=== PATIENT | female | born 1945 | race Caucasian/White ===

== ENCOUNTER 2016-04-13 06:40 | Day surgery (SDC) | payer MEDICARE ==
[~2016-04-13] VITALS: Ht 157.5 cm; Wt 98.4 kg
[~2016-04-13 06:40] MED LIST: ALEVE220 MG PO; AMITRIPTYLINE H50 MG PO; BAYER ASPIRIN325 MG PO; CYMBALTA60 MG PO; FUROSEMIDE20 MG PO; K-TAB10 MEQ PO; LEVOTHYROXINE125 MCG PO; NEXIUM40 MG PO; SODIUM BICARBO650 MG PO; TOPAMAX25 MG PO; VITAMIN B-121000 MCG PO; VITAMIN E400 UNI2 PO; ZOFRAN4 MG PO
[2016-04-13] MEDS ORDERED: ZOFRAN4 MG PO (07:46)
[2016-04-13 07:47] VITALS: BP 148/89; Ht 157.5 cm; Wt 98.4 kg
[2016-04-13 08:56] LABS: BASOPHILS 0.4 % (0.0-2.0); EOSINOPHILS 2.6 % (0-7); HEMATOCRIT 33.5 % (36.0-48.0); HEMOGLOBIN 9.7 g/dL (12-16); IMMATURE GRANULOCYTES 0.2 % (0-5); LYMPHOCYTES 29.2 % (15-50); MCH 26.5 pg (26.0-34.0); MCV 91.5 fL (80.0-100.0); MONOCYTES 6.9 % (2-11); NEUTROPHILS 60.7 % (40-80); RBC 3.66 10x6/uL (4.00-5.40); RDW 17.3 % (11.5-14.5); WBC 9.4 10x3/uL (4.8-10.8)
[2016-04-13 08:58] LABS: PLATELET COUNT 403 10x3/uL (130-400)
[2016-04-13 09:16] LABS: ANION GAP 14.6 mmol/L (8-16); CALCIUM 9.1 mg/dL (8.5-10.1); CARBON DIOXIDE 25.1 mmol/L (21.0-32.0); CREATININE - SERUM 2.2 mg/dL (0.6-1.3); POTASSIUM - SERUM 4.7 mmol/L (3.5-5.1)
[2016-04-13] MEDS ORDERED: PERCOCET 10/3251 TA1 PO (09:42)
--- NOTE | 2016-04-13 12:40 | NUR ---
DISCHARGE INSTRUCTIONS AND RX GIVEN, VOICED UNDERSTANDING. DISCHARGED HOME VIA WC.
--- NOTE | 2016-04-28 13:33 | OP ---
PATIENT NAME: LA OCAMPO MEDICAL RECORD: [id number] :45 LOCATION:D.OPS ADMISSION DATE: SURGEON: MARY VELA MD DATE OF OPERATION: 04/13/2016 PREOPERATIVE DIAGNOSIS: Endometrial adenocarcinoma. POSTOPERATIVE DIAGNOSIS: Endometrial adenocarcinoma. PROCEDURE: 1. Left subclavian vein PowerPort placement. 2. Fluoroscopic interpretation. SURGEON: Mary Vela MD. OPERATIVE PROCEDURE: The patient's left chest was prepped and draped in sterile fashion. A needle was used to cannulate the left subclavian vein. The guidewire was advanced with ease. Fluoro was used to note that the wire was in good position in the venous system. A skin incision was made on the left lateral chest and a subcutaneous pouch was made overlying the pectoral fascia. A catheter was tunneled between this subcutaneous pouch and the wire exit site. The catheter was then sutured to the pectoral fascia using interrupted 2-0 Prolenes times 2. The catheter was then cut with a beveled tip. The dilator trocar device was placed over the wire and the wire and dilator were removed. The catheter tip was advanced through the trocar with ease and the trocar was removed. The catheter flushed easily with heparinized saline. We then reapproximated the subcutaneous tissues with interrupted 3-0 Vicryls and the skin incision was closed with subcutaneous 5-0 Monocryl. COMPLICATIONS: None. CONDITION: Stable. ANESTHESIA: General endotracheal and local. BLOOD LOSS: Minimal. TRANSINT:[id number] Voice Confirmation ID: [id number] DOCUMENT ID: [id number] MARY VELA MD at 1333 CC: [id number] DICTATION DATE: 04/26/16 1651 CHERRY GROWER: 04/26/16 2315 [facility] 04/13/16 [place] [id number]
== END 2016-04-13 12:40 | disposition home or self-care (01) ==
LOC: D.OPS 06:40
PROVIDERS: Surgery
DX: C54.1 Malignant neoplasm of endometrium (principal)

== ENCOUNTER 2016-05-21 16:38 | Inpatient (IN) | payer MEDICARE ==
[~2016-05-21] VITALS: Ht 157.5 cm; Wt 98.0 kg
[~2016-05-21 16:38] MED LIST changes: +PERCOCET 10/3251 TA1 PO
[2016-05-21 18:10] LABS: BASOPHILS 1.5 % (0.0-2.0); EOSINOPHILS 0 % (0-7); HEMATOCRIT 39.8 % (36.0-48.0); HEMOGLOBIN 12.7 g/dL (12-16); IMMATURE GRANULOCYTES 1.2 % (0-5); LYMPHOCYTES 19.5 % (15-50); MCH 26.5 pg (26.0-34.0); MCHC 31.9 g/dL (31.0-37.0); MCV 83.1 fL (80.0-100.0); MEAN PLATELET VOLUME 9.4 fL (7.4-10.4); MONOCYTES 2.6 % (2-11); NEUTROPHILS 75.2 % (40-80); RBC 4.79 10x6/uL (4.00-5.40); RDW 16.4 % (11.5-14.5); WBC 6.6 10x3/uL (4.8-10.8)
[2016-05-21 18:11] LABS: PLATELET COUNT 287 10x3/uL (130-400)
[2016-05-21 18:33] LABS: ALBUMIN 2.8 g/dL (3.4-5.0); ANION GAP 15.5 mmol/L (8-16); BILIRUBIN - TOTAL 0.45 mg/dL (0.2-1.3); CALCIUM 8.1 mg/dL (8.5-10.1); CARBON DIOXIDE 20.5 mmol/L (21.0-32.0); CREATININE - SERUM 1.9 mg/dL (0.6-1.3); PROTEIN - SERUM 5.8 g/dL (6.4-8.2)
--- NOTE | 2016-05-21 22:16 | NUR ---
REC'D TO ROOM 2218 PER STRETCHER A 70 Y/O W/FE PER SERVICES DR. FLOWERS WITH DX HYPOTENSION/UTERINE CANCER ALLERGY=CODEINE. IV PATENT LEFT AC OF LR AT 125CC'S/HR. ASSESSMENT PER ADMIT PACKET. FAMILY MEMBER AT BEDSIDE.
[2016-05-21 22:33] VITALS: BP 104/66; BMI 39.6
--- NOTE | 2016-05-22 00:39 | NUR ---
EYES CLOSED RESPIRATIONS WITH EASE AND UNLABORED.
--- NOTE | 2016-05-22 02:26 | NUR ---
RESTING QUIETLY ESPIRATIONS WITH EASE AND UNLABORED SR UP X2 CALL LIGHT WITHIN REACH.
[2016-05-22 04:00] VITALS: BP 93/61
[2016-05-22 06:21] LABS: APPEARANCE CLOUDY (CLEAR); BACTERIA MANY /hpf (NONE SEEN); BILIRUBIN NEGATIVE (NEGATIVE); COLOR YELLOW (YELLOW); EPITHELIAL CELLS 0-5 /hpf (0-5); GLUCOSE NEGATIVE (NEGATIVE); KETONE SMALL mg/dL (NEGATIVE); LEUKOCYTE ESTERASE 1+ (NEGATIVE); NITRITE NEGATIVE (NEGATIVE); PROTEIN 2+ mg/dL (NEGATIVE); UROBILINOGEN NORMAL (NORMAL)
[2016-05-22 06:23] LABS: GRANULAR CAST OCC /lpf (NONE SEEN); MUCUS <1+ /lpf (NONE SEEN)
--- NOTE | 2016-05-22 07:00 | NUR ---
PT. WAS RECEIVED AT THE BEGINNING OF THIS SHIFT IN BED AWAKE AND ORIENTED X 3. FAMILY AT BEDSIDE. VITAL SIGNS WNL. LEFT AC WITH LR GOING AT 125ML'S/HR VIA PUMP. WILL BE MONITORING HER THROUGHOUT THIS SHIFT AND ASSISTING PRN WITH ADL'S. NO DISTRESS FOUND.
[2016-05-22 07:04] LABS: BASOPHILS 1.6 % (0.0-2.0); EOSINOPHILS 0 % (0-7); HEMATOCRIT 35.5 % (36.0-48.0); HEMOGLOBIN 11.4 g/dL (12-16); IMMATURE GRANULOCYTES 1.4 % (0-5); LYMPHOCYTES 19.5 % (15-50); MCH 26.2 pg (26.0-34.0); MCHC 32.1 g/dL (31.0-37.0); MCV 81.6 fL (80.0-100.0); MEAN PLATELET VOLUME 9.2 fL (7.4-10.4); MONOCYTES 3.5 % (2-11); PLATELET COUNT 258 10x3/uL (130-400); RBC 4.35 10x6/uL (4.00-5.40); RDW 16.5 % (11.5-14.5)
[2016-05-22 07:10] LABS: WBC 4.9 10x3/uL (4.8-10.8)
[2016-05-22 07:36] LABS: ALBUMIN 2.3 g/dL (3.4-5.0); ALKALINE PHOSPHATASE 60 U/L (46-116); ALT (SGPT) 17 U/L (10-68); BILIRUBIN - TOTAL 0.35 mg/dL (0.2-1.3); CALC OSMOLALITY 283 mosm/kg (275-300); CALCIUM 7.8 mg/dL (8.5-10.1); CARBON DIOXIDE 19.2 mmol/L (21.0-32.0); CHLORIDE - SERUM 107 mmol/L (98-107); CREATININE - SERUM 1.6 mg/dL (0.6-1.3); GLUCOSE 109 mg/dL (74-106); MAGNESIUM - SERUM 1.8 mg/dL (1.8-2.4); POTASSIUM - SERUM 3.2 mmol/L (3.5-5.1); PROTEIN - SERUM 4.9 g/dL (6.4-8.2); SODIUM 140 mmol/L (136-145); UREA NITROGEN 25 mg/dL (7-18); eGFR NON AFRICAN AMERICAN 34 mL/min (90-120)
[2016-05-22 07:39] LABS: TROPONIN-I < 0.017 ng/mL (0.000-0.060)
[2016-05-22 08:12] VITALS: BP 100/70; BP 102/65
[2016-05-22 12:04] VITALS: BP 97/65
[2016-05-22 12:32] VITALS: Ht 157.5 cm; Wt 98.0 kg
--- NOTE | 2016-05-22 15:56 | NUR ---
PT HAS CONTINUED TO HAVE SEVERAL LOOSE STOOLS THIS SHIFT. LOMOTIL PO WAS GIVEN AROUND 3PM. PT. IS RESTING IN BED WITH DOOR SHUT AND COLD RAG ON HER FOREHEAD. WILL CONTINUE TO OBSERVE PT. AND ASSIST PRN. CALL LIGHT IS IN REACH.
[2016-05-22 15:59] VITALS: BP 103/73
[2016-05-22 20:00] VITALS: BP 121/71
--- NOTE | 2016-05-22 20:00 | NUR ---
ASSESSMENT PER FLOWSHEET. IV IN LEFT AC INFILTRATED GREATLY IN REMOVE WITH TIP INTACT ATTEMPT TO ACCESS INFUSAPORT. NO BLOOD RETURN BUT FLUSHES WITH EASE CONNECTED IV FLUIDS WILL OBSERVE SITE IF SWELLING OCCURS WILL REMOVE RAJAN NEEDLE. K+ RIDER #1 INFUSING K+ WAS 3.2 THIS AM AT 0630 AND NOT TREATED. PT DOES HAVE ELECTROLYTE PROTOCAL. PT SISTER AT BEDSIDE.LR INFUSING AT 125CC'S/HR.
--- NOTE | 2016-05-22 20:15 | NUR ---
RE CHECKED IV SITE SOME SWELLING NOTED ABOVE PORT SITE ALSO PAINFUL TO TOUCH. IV STOPPED AND RAJAN NEEDLE PULLED. NOTIFIED ICU TO HELP TRY.
--- NOTE | 2016-05-22 20:45 | NUR ---
ICU NURSE HERE TO TRY AND ACCESS PORT SITE. SHE WAS UNSUCCESSFUL.
--- NOTE | 2016-05-22 21:00 | NUR ---
NOTIFIED WOUND CARE NURSE TERE GOMEZ TO HELP ACCESS PORT. ATTEMPTS X1 TRIED NO SUCCESS. PERIPHERAL IV STARTED RT HAND #22G ANGIOCATH X1 ATTEMPT PER ZAIDA GOMEZ. RESUMED IV FLUIDS AND CONTINUED K+ RIDERS.
--- NOTE | 2016-05-22 22:22 | NUR ---
2210 Attempted 1" Huberneedle insertion into left subclavian InfusaPort site using sterile procedure, prepped with Chloraprep from kit. Needle seemed to insert into port without difficulty however unable to inject saline or withdraw blood from site. Needle removed. Site covered with sterile guaze and secured with steristrip. Informed patient and family member MD will have to evaluate Infusaport before attempt to use. PIV started Rt hand by Tung Francois RN.
--- NOTE | 2016-05-22 22:32 | NUR ---
UP TO BR VOIDS AND HAD LARGE BROWN WATERY STOOL. LOMOTIL TAB ONE PO GIVEN FOR DIARRHEA.
--- NOTE | 2016-05-23 | NUR ---
EYES CLOSED RESPIRATIONS WITH EAS AND UNLABORED. CONTINUING WITH K+ RIDERS.
[2016-05-23 04:00] VITALS: BP 105/81
--- NOTE | 2016-05-23 04:00 | NUR ---
RESTING QUIETLY NO VOICED C/O SR UP X2 CALL LIGHT WITHIN REACH.
[2016-05-23 07:05] LABS: POTASSIUM - SERUM 3.7 mmol/L (3.5-5.1)
--- NOTE | 2016-05-23 07:15 | NUR ---
REPORT RECEIVED FROM PHOTOGRAPHIC TECHNICIAN NURSE. CALL LIGHT IN REACH.
[2016-05-23 08:21] LABS: ALBUMIN 2.4 g/dL (3.4-5.0); BILIRUBIN - TOTAL 0.2 mg/dL (0.2-1.3); CALCIUM 8.7 mg/dL (8.5-10.1); CREATININE - SERUM 1.6 mg/dL (0.6-1.3); PROTEIN - SERUM 5.7 g/dL (6.4-8.2)
[2016-05-23 08:25] LABS: ANION GAP 23.4 mmol/L (8-16); CARBON DIOXIDE 13.3 mmol/L (21.0-32.0)
[2016-05-23 08:41] VITALS: BP 91/67
--- NOTE | 2016-05-23 09:15 | NUR ---
ASSESSMENT COMPLETED. SPOKE WITH ABAD IN [facility] ABOUT GETTING SCD MACHINE SO THAT PATIENT CAN HAVE HER PLEX-PULSES. FAMILY IN ROOM. CALL LIGHT IN REACH. WILL CONTINUE WITH PLAN OF CARE.
--- NOTE | 2016-05-23 11:30 | NUR ---
AM MEDS ADMINISTERED. GETTING US AT THIS TIME.
--- NOTE | 2016-05-23 12:15 | NUR ---
PATIENT IS AWAKE AND ALERT. PATIENT VERBALIZED NAUSEA, REQUESTED ZOFRAN. ADMINISTERED ZOFRAN IV. FAMILY IN ROOM. BED IN LOWEST POSITION, CALL LIGHT IN REACH. BED RAILS UP X'S 2. ALL DENY NEEDS.
[2016-05-23 12:20] LABS: BASOPHILS 1.3 % (0.0-2.0); EOSINOPHILS 0.3 % (0-7); HEMOGLOBIN 11.8 g/dL (12-16); IMMATURE GRANULOCYTES 0.3 % (0-5); LYMPHOCYTES 29.9 % (15-50); MCH 26.7 pg (26.0-34.0); MCHC 31.9 g/dL (31.0-37.0); MEAN PLATELET VOLUME 9.8 fL (7.4-10.4); MONOCYTES 7.1 % (2-11); NEUTROPHILS 61.1 % (40-80); PLATELET COUNT 226 10x3/uL (130-400); RBC 4.42 10x6/uL (4.00-5.40); RDW 16.8 % (11.5-14.5)
[2016-05-23 12:33] LABS: MCV 83.7 fL (80.0-100.0); WBC 3.1 10x3/uL (4.8-10.8)
[2016-05-23 12:57] VITALS: BP 101/72
--- NOTE | 2016-05-23 13:30 | NUR ---
ASSISTED TO BR AND BACK TO BED.
--- NOTE | 2016-05-23 14:30 | NUR ---
NO NEEDS VOICED AT THIS TIME. FAMILY IN ROOM. CALL LIGHT IN REACH.
--- NOTE | 2016-05-23 14:52 | NUR ---
Patient Name: AL OCAMPO Admission Status: ER Admission Date: 05-22-2016 : 1945 Admission Diagnosis: Attending: BOO Current LOS: 1 Anticipated DC Date: 05-26-2016 Planned Disposition: Home Primary Insurance: MEDICARE A & B Discharge Planning Comments: CM MET WITH PATIENT AND FAMILY TO DISCUSS DISCHARGE PLANNING AND NEEDS. THE PATIENT STATES SHE RESIDES WITH HER GRANDSON "RORY HERNANDEZ" ([phone]) IN A SINGLE STORY HOME WITH 2 STEPS AT THE FRONT DOOR. THE PATIENT HAS A WALKER (she purchased at [employer]), CANE, BSC, AND SHOWER CHAIR AT HOME. SHE WAS NOT RECEIVING HOME HEALTH SERVICES AT THE TIME OF THIS ADMISSION. SHE STATED HER HOME ENVIRONMENT IS SAFE TO RETURN TO. HER NIECE "MISTY SEAY" ([phone]) REQUESTS PATIENT BE SET UP WITH [facility] AT DISCHARGE. PTS MARJAN ALSO REQUESTS PATIENT RECEIVE SEATED WALKER PRIOR TO DISCHARGE. PATIENT'S PCP IS DR. FLOWERS. HER PHARMACY IS [facility] ([place]) #[phone]. CM SPOKE WITH "KP" AT [facility] ON [address] ([phone]) WHO WILL SPEAK WITH PATIENT'S NEICE RE: [facility]. NUMBER PROVIDED TO PATIENT'S NEICE. CM WILL CONTINUE TO FOLLOW AND ASSIST WITH DISCHARGE PLANNING NEEDED. Lug Breaker And Wire Puller: Kandy Ayon * Is the patient Alert and Oriented? Yes 0 * How many steps to enter\\exit or inside your home? 2 0 * PCP LIONEL 0 * Pharmacy [facility] ([place]) [phone] 0 * Preadmission Environment Home with Family 0 * ADLs Partial Dependent 0 * Partial ADLs (Assistance needed) Ambulation Medication Management 0 * Equipment Bedside Commode Cane Shower Chair Walker 0 * Other Equipment PATIENT'S FAMILY REQUESTS A "WALKER WITH A SEAT". PATIENT'S HOME WALKER WAS PURCHASED AT [facility] BY PATIENT. 0 * List name and contact numbers for known caregivers / representatives who currently or will assist patient after discharge: MISTY SEAY -NIECE ([phone]) MIKHAIL AVELAR - MARYAM ([phone]) 0 * Community resources currently utilized None 0 * Additional services required to return to the preadmission environment? Yes 0 * Can the patient safely return to the preadmission environment? Yes 0 * Has this patient been hospitalized within the prior 30 days at any hospital? No 0 Grand Total: 0
--- NOTE | 2016-05-23 16:24 | NUR ---
SPOKE WITH DR. JEFF ABOUT VENOUS DOPPLER RESULTS.
[2016-05-23 17:10] VITALS: BP 146/87
--- NOTE | 2016-05-23 18:30 | NUR ---
NO CHANGES IN INITIAL ASSESSMENT. CALL LIGHT IN REACH. FAMILY INROOM. WILL CONTINUE WITH PLAN OF CARE.
[2016-05-23 20:00] VITALS: BP 136/68
--- NOTE | 2016-05-23 20:00 | NUR ---
ASSESSMENT PER FLOWSHEET. IV PATENT RT HAND OF LR AT 125CC'S/HR SITE CLEAR. RESERVING LEFT ARM. EDEMA NOTED. FAMILY AT BEDSIDE.
--- NOTE | 2016-05-23 20:30 | NUR ---
MEDS GIVEN PER MAR.
--- NOTE | 2016-05-23 23:00 | NUR ---
EYES CLOSED RESPIRATIONS WITH EASE AND UNLABORED.
[2016-05-24] VITALS: BP 114/69
--- NOTE | 2016-05-24 01:30 | NUR ---
EYES CLOSED RESPIRATIONS WITH EASE AND UNLABORED. DENIES NEEDS. SISTER AT BEDSIDE.
--- NOTE | 2016-05-24 02:57 | NUR ---
RESTING QUIETLY NO C/O
[2016-05-24 04:00] VITALS: BP 128/70
--- NOTE | 2016-05-24 05:46 | NUR ---
UP TO BSC VOIDED AND LARGE LIQUID BROWN WATERY STOOL.
--- NOTE | 2016-05-24 07:30 | NUR ---
REPORT RECEIVED FROM FORGING OPERATOR NURSE. CALL LIGHT IN REACH.
--- NOTE | 2016-05-24 08:50 | NUR ---
ASSESSMENT COMPLETED. PLEXI-PULSES TO BLE. VISITOR AT BEDSIDE. CALL LIGHT IN REACH. WILL CONTINUE WITH PLAN OF CARE.
[2016-05-24 09:09] VITALS: BP 128/62
--- NOTE | 2016-05-24 09:45 | NUR ---
PATIENT ALERT IN LOW COHI POSITION. RESPIRATIONS EVEN AND UNLABORED. SIDE RAILS UP X2. BED IN LOW POSITION. CALL LIGHT IN REACH. GUEST AT BEDSIDE.
--- NOTE | 2016-05-24 10:17 | NUR ---
AM MEDS ADMINISTERED. CALL LIGHT IN REACH.
--- NOTE | 2016-05-24 12:20 | NUR ---
ASSISTED TO BSC AND BACK TO BED.
[2016-05-24 13:06] VITALS: BP 116/69
--- NOTE | 2016-05-24 14:00 | NUR ---
FAMILY AT BEDSIDE. CALL LIGHT IN REACH. NO NEEDS VOICED.
--- NOTE | 2016-05-24 16:10 | NUR ---
DENIES NEEDS AT THIS TIME. CALL LIGHT IN REACH.
[2016-05-24 16:32] VITALS: BP 124/71
--- NOTE | 2016-05-24 18:00 | NUR ---
NO CHANGES IN INITIAL ASSESSMENT. CALL LIGHT IN REACH. PLEXI-PULSES TO BLE. FAMILY IN ROOM. WILL CONTINUE WITH PLAN OF CARE.
[2016-05-24 19:00] VITALS: BP 127/69
--- NOTE | 2016-05-24 19:00 | NUR ---
BEDSIDE REPORT RECEIVED AND CARE OF PT ASSUMED. PT LYING IN SEMI CHOI'S POSITION WITH EYES CLOSED. IV IN RIGHT HAND PATENT WITH LR INFUSING AT 125 ML / HR. FAMILY MEMBER IS AT BEDSIDE. WILL MONITOR FOR NEEDS.
--- NOTE | 2016-05-24 20:40 | NUR ---
HS MEDICATIONS GIVEN. WILL CONTINUE TO MONITOR FOR NEEDS.
--- NOTE | 2016-05-24 21:15 | NUR ---
ASSISTED PT UP TO USE BSC...HAD LARGE AMOUNT OF WATERY STOOL. POSITIONED BACK IN BED FOR COMFORT. WILL CONTINUE TO MONITOR FOR NEEDS.
[2016-05-25 04:00] VITALS: BP 146/76
[2016-05-25 08:46] VITALS: BP 141/70
--- NOTE | 2016-05-25 09:00 | NUR ---
ASSESSMENT PER FLOW SHEET.PT WITHOUT DISTRESS.DENIES NEEDS AT PRESENT.CALL LIGHT IN REACH
[2016-05-25 11:30] VITALS: BP 147/87
[2016-05-25] MEDS ORDERED: LOVENOX150 MG/ML SC (12:39)
--- NOTE | 2016-05-25 14:16 | NUR ---
05/25/2016 14:16 DCP: Discharge Planning Patient Name: LA OCAMPO Encounter No: [id number] : 1945 Primary Insurance: MEDICARE A & B Anticipated DC Date: 05-26-2016 Planned Disposition: Home External Planned Provider: : DCP follow-up note: Patient and family in agreement with discharge plan. No changes to plan. Case management will follow and assist as needed. Kaitlin Burnette
--- NOTE | 2016-05-25 15:18 | NUR ---
DISCHARGE INSTRUCTIONS,STATES UNDERSTANDING.IV DCD WITH CATH INTACT.LEFT UNIT VIA WHEELCHAIR FOR TRANSPORT HOME
== END 2016-05-25 15:30 | disposition home or self-care (01) | DRG 158 ==
LOC: D.ER 16:38 → D.MS 20:30 → OBSVTIME 20:30 → D.MS 22:05
PROVIDERS: Emergency Medicine; Internal Medicine Hematology; Surgery; ADMIT Legal Medicine
DX: K12.31 Oral mucositis (ulcerative) due to antineoplastic therapy (principal); C79.51 Secondary malignant neoplasm of bone; E44.0 Moderate protein-calorie malnutrition; I82.622 Acute embolism and thrombosis of deep veins of left upper extremity; E86.0 Dehydration; R19.7 Diarrhea, unspecified; E87.6 Hypokalemia; C55 Malignant neoplasm of uterus, part unspecified

== ENCOUNTER → 2016-09-25 08:06 | Outpatient (CLI) | payer MEDICARE ==
[2016-05-22 12:32] VITALS: BMI 39.5
[~2016-09-25 08:06] MED LIST changes: +LOVENOX150 MG/ML SC
== END | disposition home or self-care (01) ==
LOC: D.CT 08:06
PROVIDERS: Legal Medicine
DX: C55 Malignant neoplasm of uterus, part unspecified (principal)

== ENCOUNTER 2017-04-08 22:55 | Emergency (ER) | payer MEDICARE ==
[2016-05-22 12:32] VITALS: BMI 39.5
[2017-04-09 01:21] LABS: BASOPHILS 0.2 % (0-2); EOSINOPHILS 3.5 % (0-7); HEMATOCRIT 41.9 % (36.0-48.0); HEMOGLOBIN 13.5 g/dL (12-16); IMMATURE GRANULOCYTES 0.2 % (0-5); LYMPHOCYTES 53.1 % (15-50); MCH 30.3 pg (26.0-34.0); MCHC 32.2 g/dL (31.0-37.0); MCV 94.2 fL (80.0-100.0); MEAN PLATELET VOLUME 8.7 fL (7.4-10.4); PLATELET COUNT 188 10x3/uL (130-400); RBC 4.45 10x6/uL (4.00-5.40); RDW 14.2 % (11.5-14.5); WBC 8.9 10x3/uL (4.8-10.8)
[2017-04-09 01:43] LABS: ALBUMIN 3.2 g/dL (3.4-5.0); ALKALINE PHOSPHATASE 110 U/L (46-116); ALT (SGPT) 26 U/L (10-68); CALC OSMOLALITY 278 mosm/kg (275-300); CALCIUM 7.8 mg/dL (8.5-10.1); CARBON DIOXIDE 22.7 mmol/L (21.0-32.0); CHLORIDE - SERUM 104 mmol/L (98-107); CREATINE KINASE 122 UL (21-215); GLUCOSE 97 mg/dL (74-106); MAGNESIUM - SERUM 1.7 mg/dL (1.8-2.4); POTASSIUM - SERUM 3.9 mmol/L (3.5-5.1); PRO BNP 144 pg/mL (0-125); PROTEIN - SERUM 6.5 g/dL (6.4-8.2); SODIUM 139 mmol/L (136-145); TROPONIN-I < 0.017 ng/mL (0.000-0.060); UREA NITROGEN 15 mg/dL (7-18); eGFR NON AFRICAN AMERICAN 26 mL/min (90-120)
== END 2017-04-09 05:00 | disposition home or self-care (01) ==
LOC: D.ER 22:55
PROVIDERS: Emergency Medicine
DX: B34.9 Viral infection, unspecified (principal); I50.9 Heart failure, unspecified; I10 Essential (primary) hypertension; R79.1 Abnormal coagulation profile